=== PATIENT | female | born 2005 | race Hispanic/Latino ===

== ENCOUNTER 2024-05-25 12:07 | Inpatient (IN) | payer MEDICAID, SELFPAY ==
[2024-05-25] MEDS ORDERED: Bisacodyl 10 MG SUPP PR PRN (12:39)
[2024-05-25] MEDS ORDERED: traMADol HCl 50 MG TAB PO PRN (12:39)
[2024-05-25] MEDS ORDERED: Promethazine HCl 25 MG/ML VIAL IM PRN ×2 (12:39)
[2024-05-25] MEDS ORDERED: Acetaminophen 500 MG TAB PO PRN (12:39)
[2024-05-25] MEDS ORDERED: Preparation H Ointment 28 GM TUBE PR PRN (12:39)
[2024-05-25] MEDS ORDERED: Milk Of Magnesia 30 ML UDCUP PO PRN (12:39)
[2024-05-25] MEDS ORDERED: hydrALAZINE 20 MG/ML VIAL SLOW IVP PRN ×2 (12:39)
[2024-05-25] MEDS ORDERED: Ondansetron PF 4 MG/2 ML Vial IVP PRN ×2 (12:39)
[2024-05-25] MEDS ORDERED: Lanolin Ointment 7 GM TUBE TOP PRN (12:39)
[2024-05-25] MEDS: Lidocaine 1% (PF) 30 ML VIAL ONE (12:42)
[2024-05-25] MEDS: Ketorolac Tromethamine 30 MG (1 mL) VIAL ONE (12:42)
[2024-05-25] MEDS ORDERED: Oxytocin 30 units/NS 500 ML 500 ML IV SCH ×2 (12:45)
[2024-05-25 13:19] LABS: Hematocrit 32.5 % (34.9-44.5); Hemoglobin 9.9 g/dL (12.0-15.5); Mean Corpuscular HGB CONC 30.5 g/dL (32.0-36.0); Mean Corpuscular Volume 72.4 fL (81.6-98.3); Platelet Count 262 10x3/uL (150-450); RBC Distribution Width 16.5 % (11.5-14.5); Red Blood Cell (RBC) Count 4.49 10x6/uL (3.90-5.03); White Blood Cell (WBC) Count 15.34 10x3/uL (3.5-10.5)
[2024-05-25 13:56] LABS: Hep B Surf Ag - L&D Non-Reactive S/CO (NonReactive)
[2024-05-25 13:59] LABS: Syphilis Antibody Nonreactive (Nonreactive); Syphilis Antibody Index 0.14 S/CO (<1.00 Non-Reactive)
[2024-05-25] MEDS: Ibuprofen 800 MG TAB PO SCH (17:10)
[2024-05-25] MEDS: Ferrous Sulfate 325 MG TAB PO SCH (17:10)
[2024-05-25] MEDS: Oxytocin 30 units/NS 500 ML 500 ML ONE (20:23)
[2024-05-25] MEDS: Lactated Ringer's 1,000 ML IV SCH (20:23)
[2024-05-25] MEDS: Oxytocin 10 UNITS/ML VIAL ONE (20:23)
[2024-05-25] MEDS: Benzocaine-Menthol 82.5 ML CAN TOP PRN (21:03)
[2024-05-25] MEDS: Docusate 100 MG CAP PO SCH (21:04)
[2024-05-26] MEDS ORDERED: Boostrix 0.5 ML (Tdap) VIAL (>/=7 yrs of age) IM ONE (09:00)
[2024-05-27 11:48] VITALS: BP 117/58; TEMP 98.6
== END 2024-05-27 13:40 | disposition home or self-care (01) | DRG 807 ==
LOC: CSHLD/OP 12:07 → CSHLD 12:43 → CSHPP 14:44
PROVIDERS: ADMIT Family Medicine; ATTEND Family Medicine
PROC: 10E0XZZ Delivery of Products of Conception, External Approach (ICD-10-PCS; principal; 2024-05-25)
PROC: 0KQM0ZZ Repair Perineum Muscle, Open Approach (ICD-10-PCS; 2024-05-25)
DX: O70.1 Second degree perineal laceration during delivery (principal); Z37.0 Single live birth; Z3A.37 37 weeks gestation of pregnancy
CPT/HCPCS: 85027; 86780; 86850; 86900; 86901; 87340; 99285; J1885; J2590